=== PATIENT | male | born 1990 | race American Indian/Alaskan Native ===

== ENCOUNTER 2018-09-04 15:08 | Emergency (ER) | payer OTHER ==
[2018-09-04 15:19] VITALS: BP 132/78
--- NOTE | 2018-09-04 15:21 | Emergency Department Report ---
Chief Complaint: Medical Clearance Stated Complaint: RIGHT ARM PAIN Time Seen by Provider: 09/04/18 15:18 - HPI History of Present Illness: This is a 28 y.o. male that presents to the ER because he is nervous being around other people. - Exam Vital Signs: Vital Signs 09/04/18 15:18 Temperature 98.1 F Pulse Rate 90 Respiratory 18 Rate Blood Pressure 132/78 O2 Sat by Pulse 100 Oximetry MSE screening note: Focused history and physical exam performed. Due to findings the following was ordered: Labs ED Disposition for MSE Condition: Stable
[2018-09-04 16:17] LABS: Basophils # (Auto) 0.1 K/mm3 (0.0-0.1); Basophils % (Auto) 1.2 % (0.0-1.8); Eosinophils % (Auto) 1.2 % (0.0-4.3); Hematocrit 48.8 % (35.5-45.6); Hemoglobin 16.9 gm/dl (11.8-15.2); Lymphocytes # (Auto) 1.8 K/mm3 (1.2-5.4); Lymphocytes % (Auto) 43.6 % (13.4-35.0); Mean Corpuscular HGB Conc 35 % (32-34); Mean Corpuscular Volume 99 fl (84-94); Monocytes # (Auto) 0.3 K/mm3 (0.0-0.8); Monocytes % (Auto) 8.1 % (0.0-7.3); Platelet Count 200 K/mm3 (140-440); Red Blood Count 4.93 M/mm3 (3.65-5.03); Red Cell Distribution Width 13.7 % (13.2-15.2)
[2018-09-04 16:33] LABS: BUN/Creatinine Ratio 13; Blood Urea Nitrogen 12 mg/dL (9-20); Calcium 9.2 mg/dL (8.4-10.2); Hemolysis Index 16
[2018-09-04 16:45] LABS: Amphetamine Screen,Urine PRESUMPTIVE NEGATIVE; Benzodiazepines Screen,Urine PRESUMPTIVE NEGATIVE; Cocaine Screen,Urine PRESUMPTIVE NEGATIVE; Methadone Screen,Urine PRESUMPTIVE NEGATIVE; Opiate Screen,Urine PRESUMPTIVE NEGATIVE
[2018-09-04 16:46] LABS: Bilirubin,Urine NEG (Negative); Blood,Urine NEG (Negative); Color,Urine Yellow (Yellow); Mucus,Urine FEW /HPF; Protein,Urine <15 mg/dL mg/dL (Negative)
[2018-09-04 16:56] LABS: Cannabinoid Screen,Urine PRESUMPTIVE POSITIVE
== END 2018-09-04 21:00 | disposition left against medical advice (07) ==
LOC: ED 15:08
DX: M79.601 Pain in right arm (principal); Z53.21 Procedure and treatment not carried out due to patient leaving prior to being seen by health care provider
CPT/HCPCS: 36415; 80048; 80307; 81001; 85025; G0480; 80320